=== PATIENT | female | born 1960 | race Caucasian/White ===

== ENCOUNTER 2019-12-29 10:21 | Emergency (ER) | payer OTHER ==
[~2019-12-29] VITALS: Ht 172.7 cm; Wt 99.8 kg
[~2019-12-29 10:21] MED LIST: LISI1TAB32 PO
--- NOTE | 2019-12-29 10:30 | NUR ---
c/o r wrist and thumb pain, 05/31 ps, Hx fall 2017. Patient a/ox4, breathing even and unlabored, no sob noted. Needs attended. Kept comfortable, waiting for x-ray.
--- NOTE | 2019-12-29 10:56 | NUR ---
Patient discharged to home in stable condition. Written and verbal after care instructions given. Patient verbalizes understanding of instruction.
[2019-12-29 10:57] VITALS: BP 150/86
== END 2019-12-29 10:58 | disposition home or self-care (01) ==
LOC: ER 10:25
DX: S63.591A Other specified sprain of right wrist, initial encounter (principal); I10 Essential (primary) hypertension; Z90.89 Acquired absence of other organs; Z79.899 Other long term (current) drug therapy; W18.39XA Other fall on same level, initial encounter; Y93.89 Activity, other specified; Y92.89 Other specified places as the place of occurrence of the external cause; Y99.8 Other external cause status
CPT/HCPCS: 73110